=== PATIENT | female | born 2005 | race Two or more races ===

== ENCOUNTER 2024-10-26 14:14 | Emergency (ER) | payer MEDICAID, OTHER ==
[~2024-10-26] VITALS: Ht 160 cm; Wt 62.1 kg
[2024-10-26 15:08] LABS: Urine Budding Yeast OCCASIONAL /hpf (None Seen); Urine Protein, UAD Negative (Negative)
--- NOTE | 2024-10-26 15:11 | ED.PDOC ---
[facility] [employer] HPI Comments A 19 YEAR OLD FEMALE PRESENTS TO THE ED WITH COMPLAINT OF VAGINAL SPOTTING AND PELVIC CRAMPING DURING . PATIENT STATES SHE IS CURRENTLY ABOUT 7 WEEKS AND HAS BEEN EXPERIENCING VAGINAL SPOTTING MILD PELVIC CRAMPING FOR THE PAST 2 DAYS. PATIENT DENIES DYSURIA, HEMATURIA, VAGINAL DISCHARGE, FEVER, CHILLS, SHORTNESS OF BREATH, CHEST PAIN, ABDOMINAL PAIN, NAUSEA, VOMITING, HEADACHE, OR OTHER COMPLAINTS. NO OTHER SYMPTOMS OR MODIFYING FACTORS AT THIS TIME. PATIENT IS ALERT, ORIENTED X 4, AND HAS STEADY GAIT. Chief Complaint: Vaginal Bleed Time Seen by MD: 14:21 Reviewed Notes: Nurses Notes, Medications, Allergies Information Source: Patient Mode of Arrival: Ambulatory Timing: Days Prehospital treatment: None Severity: Moderate Vaginal Discharge: None Vaginal Lesions: None Bleeding Quality: Bright Red Vaginal Mass: None Onset Of Mass/Bleeding: Spontaneous Last Consensual [place]: Unknown Control: None History of: Current Blood Type: Unknown Symptoms of Possible : None Associated Signs and Symptoms: Vaginal Bleeding Past Medical History PAST MEDICAL HISTORY: Denies Surgical History: Denies all surgeries IMMUNOLOGY SPECIALIST History: No Pertinent IMMUNOLOGY SPECIALIST History Family History Family History: Reviewed,noncontributory to illness Social History Smoker: Non-Smoker Alcohol: Denies ETOH Use Drugs: Denies Drug Use Lives In: Home Constitutional: denies: chills, diaphoresis, fatigue, fever, malaise, sweats, weakness, others EENTM: denies: blurred vision, double vision, ear bleeding, ear discharge, ear drainage, ear pain, ear ringing, eye pain, eye redness, hearing loss, mouth pain, mouth swelling, nasal discharge, nose bleeding, nose congestion, nose pain, photophobia, tearing, throat pain, throat swelling, voice changes, others Respiratory: denies: cough, hemoptysis, orthopnea, SOB at rest, shortness of breath, SOB with excertion, stridor, wheezing, others Cardiovascular: denies: chest pain, dizzy spells, diaphoresis, Dyspnea on exertion, edema, irregular heart beat, left arm pain, lightheadedness, palpitations, PND, syncope, others Gastrointestinal: denies: abdomen distended, abdominal pain, blood streaked bowels, constipated, diarrhea, dysphagia, difficulty swallowing, hematemesis, melena, nausea, poor appetite, poor fluid intake, rectal bleeding, rectal pain, vomiting, others Genitourinary: reports: abnormal vagina bleeding, pain (PELVIC CRAMPING); denies: burning, dyspareunia, dysuria, flank pain, frequency, hematuria, incontinence, , vagina discharge, urgency, others Neurological: denies: dizziness, fainting, headache, left sided numbness, left sided weakness, numbness, paresthesia, pre-existing deficit, right sided numbness, right sided weakness, seizure, speech problems, tingling, tremors, weakness, others Musculoskeletal: denies: back pain, gout, joint pain, joint swelling, muscle pain, muscle stiffness, neck pain, others Integumetry: denies: bruises, change in color, change in hair/nails, dryness, laceration, lesions, lumps, rash, wounds, others Allergic/Immunocompromised: denies: Difficulty Healing, Frequent Infections, Hives, Itching, others Hematologic/Lymphatic: denies: anemia, blood clots, easy bleeding, easy bruising, swollen glands, others Endocrine: denies: excessive hunger, excessive sweating, excessive thirst, excessive urination, flushing, intolerance to cold, intolerance to heat, unexplained weight gain, unexplained weight loss, others Psychiatric: denies: anxiety, bipolar disorder, depression, hopeless, panic disorder, schizophrenia, sleepless, suicidal, others All Other Systems: Reviewed and Negative Physical Exam General Appearance: No Apparent Distress, Normal HEENT: Normal ENT Inspection, Pharynx Normal, TMs Normal Neck: Full Range of Motion, Non-Tender, Normal, Normal Inspection Respiratory: Chest Non-Tender, Lungs Clear, No Accessory Muscle Use, No Respiratory Distress, Normal Breath Sounds Cardiovascular: No Edema, No JVD, No Murmur, No Gallop, Normal Peripheral Pulses, Regular Rate/Rhythm Breast Exam: Deferred Gastrointestinal: No Organomegaly, Non Tender, No Pulsatile Mass, Normal Bowel Sounds, Soft Genitalia: Deferred Pelvic: Normal External Exam, Vaginal Bleeding (VAGINAL SPOTTING, NO VAGINAL BLEEDING AND BLOOD CLOTS. ) Rectal: Deferred Extremities: No calf tenderness, Normal capillary refill, Normal inspection, Normal range of motion, Non-tender, No pedal edema Musculoskeletal : Apperance: Normal Neurologic: Alert, manager technical training II-XII nml as Tested, No Motor Deficits, Normal Affect, Normal Mood, No Sensory Deficits Cerebellar Function: Normal Reflexes: Normal Skin: Dry, Normal Color, Warm Peripheral Pulses: 2+ carotid (R), 2+ carotid (L) Lymphatic: No Adenopathy Was a procedure done? Was a procedure done?: No Differential Diagnosis (IMMUNOLOGY SPECIALIST) Vaginal Bleeding: - Incomplete, - Threatened, UTI, Vaginitis Mass / Lesion: N/A Vaginal Discharge: N/A X-Ray, Labs, Meds, VS Vital Signs Date Time Temp Pulse Resp B/P (MAP) Pulse Ox O2 Delivery O2 Flow Rate FiO2 10/26/24 15:26 98.4 69 16 126/82 (97) 98 98.4 10/26/24 15:26 69 16 98 Room Air 10/26/24 14:17 97.6 96 18 116/73 97 97.6 Lab Test 10/26/24 15:00 10/26/24 14:43 Range/Units White Blood Count 9.3 4.4-10.8 10^3/uL Red Blood Count 4.70 4.0-5.20 10^6/uL Hemoglobin 14.8 12.2-16.2 g/dL Hematocrit 42.4 36.0-46.0 % Mean Corpuscular Volume 90.1 80.0-100.0 fL Mean Corpuscular Hemoglobin 31.5 28.0-32.0 pg Mean Corpuscular Hemoglobin Concent 35.0 32.0-36.0 g/dL Red Cell Distribution Width 13.1 11.8-14.3 % Platelet Count 300 140-450 10^3/uL Mean Platelet Volume 8.3 6.9-10.8 fL Neutrophils (%) (Auto) 75.8 37.0-80.0 % Lymphocytes (%) (Auto) 17.0 10.0-50.0 % Monocytes (%) (Auto) 6.3 0.0-12.0 % Eosinophils (%) (Auto) 0.6 0.0-7.0 % Basophils (%) (Auto) 0.3 0.0-2.0 % Neutrophils # (Auto) 7.0 1.6-8.6 10 ^3/uL Lymphocytes # (Auto) 1.6 0.4-5.4 10 ^3/uL Monocytes # (Auto) 0.6 0-1.3 10 ^3/uL Eosinophils # (Auto) 0.1 0-0.8 10 ^3/uL Basophils # (Auto) 0 0-0.2 10 ^3/uL Nucleated Red Blood Cells 0.0 % Beta HCG, Quantitative 64446.8 H 1.5-4.2 mIU/mL Urine Color Colorless Yellow Urine Clarity Clear Clear Urine pH 7.5 5.0-9.0 Urine Specific [place] 1.006 1.001-1.035 Urine Protein Negative Negative Urine Ketones Negative Negative Urine Blood Negative Negative /uL Urine Nitrite Negative Negative Urine Bilirubin Negative Negative Urine Urobilinogen Normal Negative mg/dL Urine Leukocyte Esterase Negative Negative /uL Urine RBC 1 0 - 4 /hpf Urine Microscopic WBC 1 0-5 /HPF Urine Squamous Epithelial Cells Few <5 /hpf Urine Bacteria None seen None Seen /hpf Urine Yeast (Budding) Occasional None Seen /hpf Urine Glucose Normal Normal mg/dL Urine Test Positive Negative INDICATION: VAGINAL SPOTTING, 7 WEEKS TECHNIQUE: Multiple real-time grayscale transabdominal sonographic images along with color and duplex Doppler of the uterus and ovaries were obtained. COMPARISON: None FINDINGS: The uterus measures 7.6 x 6.9 x 4. cm. The endometrial stripe measures gestational sac noted in the endometrial canal cm. The right ovary measures 2.7 x 1.7 x 1.9 cm. Volume of the right ovary is 4.9 cc. A 0.7 x 0.5 x 0.5 cm anechoic structure noted in the right ovary may represent a follicle. The left ovary measures 2.5 x 1.5 x 1.5 cm. Volume of the left ovary is 3.1 cc. Subsequent color and duplex Doppler interrogation of the ovaries demonstrated symmetric vascular flow to both ovaries, though this does not exclude the possibility of torsion due to the dual blood supply. Gestational sac in the endometrial canal measuring 2.79 cm consistent with 7 week 4 days. Yolk sac is visualized. [place]-rump length is 0.96 cm consistent with 7 weeks 0 days. Adjacent to the gestational sac is a hypoechoic avascular structure measuring 0.9 x 0.4 x 1.9 cm. Average gestational age is 7 weeks 2 days ; [place] 06/12/2027. FHR: 157 bpm IMPRESSION: 1. Single intrauterine with average gestational age of 7 weeks 2 days ; [facility] 2. FHR: 157 bpm. 3. Subchorionic hemorrhage measuring 0.9 x 0.4 x 1.9 cm. 4. Corpus luteal cyst right ovary 0.7 x 0.5 x 0.5 cm. ATED BY: LEXIE KRUEGER Jr., DO DICTATED DATE/TIME: 10/26/241546 SIGNED BY: LEXIE KRUEGER Jr., SIGNED DATE/TIME: 10/26/241546 CC: X-Ray, Labs, Meds, VS Comment EXTERNAL MEDICAL RECORDS REVIEWED: [NONE] INDEPENDENT HISTORIANS: [NONE] SOCIAL DETERMINANTS OF HEALTH: [NONE] LABS ORDERED: CBC, BETA HCG QUANT, UA, URINE REVIEWED AND INTERPRETED RESULTS: BHCG QUANT 93,380.8 IMAGING ORDERED: US OB < 14 WKS TREATMENTS ORDERED: NONE PROCEDURES PERFORMED: NONE CRITICAL CARE TIME: NONE I HAVE DISCUSSED THE PATIENT WITH THE ATTENDING PHYSICIAN DR. DIMAS AND HE AGREES WITH THE PATIENT'S PLAN OF CARE AND DISPOSITION. BASED ON HISTORY OF PRESENT ILLNESS, AND PHYSICAL EXAM, PATIENT WILL BE DISCHARGED HOME. SHARED DECISION MAKING: DISCUSSED WITH PATIENT THAT THEIR WORKUP WAS NORMAL. PATIENT INSTRUCTED TO FOLLOW UP WITH PRIMARY CARE PROVIDER IN 1-2 DAYS FOR RE- EVALUATION OF SYMPTOMS. PATIENT VERBALIZES UNDERSTANDING TO RETURN TO ED FOR NEW OR WORSENING SYMPTOMS OR IF FOLLOW UP WITH PCP CANNOT BE OBTAINED. PATIENT FEELS COMFORTABLE GOING HOME AT THIS TIME. ALL QUESTIONS ADDRESSED AT TIME OF DISCHARGE. Images Reviewed?: Images reviewed and evaluated by me Time of 1ST Reevaluation: 16:00 Reevaluation 1ST: Improved Patient Education/Counseling: Diagnosis, Treatment, Need For Follow Up Family Education/Counseling: Diagnosis, Treatment, Need For Follow Up Medical Screening: No EMC Exist At This Time Departure 1 Departure Time of Disposition: 16:10 Impression: Primary Impression: Vaginal spotting Additional Impression: Threatened in first trimester Disposition: 01 HOME / SELF CARE / HOMELESS Condition: Stable Additional Instructions: FOLLOW-UP WITH [facility] [employer] IN 1 TO 2 DAYS. RETURN TO ED FOR ANY NEW OR WORSENING SYMPTOMS. Discharged With: Self, Relative Critical Care Note Critical Care Time?: No Stability Stability form required: No I personally scribed for JESSICA GARIBAY ([email or web address]) on 10/26/24 at 15:11. Electronically submitted by Jean-Pierre Ramos ([email or web address]). I personally scribed for JESSICA GARIBAY ([email or web address]) on 10/26/24 at 16:00. Electronically submitted by Jean-Pierre Ramos ([email or web address]). I personally scribed for JESSICA GARIBAY ([email or web address]) on 10/26/24 at 16:05. Electronically submitted by Jean-Pierre Ramos ([email or web address]). JESSICA GARIBAY Oct 26, 2024 15:11
[2024-10-26 15:25] LABS: Hematocrit 42.4 % (36.0-46.0); Hemoglobin 14.8 g/dL (12.2-16.2); Mean Corpuscular Hemoglobin 31.5 pg (28.0-32.0); Mean Corpuscular Volume 90.1 fL (80.0-100.0); Nucleated Red Blood Cells % 0.0 %
[2024-10-26 15:26] VITALS: BP 126/82; PULSE 69; RESP 16; TEMP 98.4; O2SAT 98
--- NOTE | 2024-10-26 15:49 | DVH ---
INDICATION: VAGINAL SPOTTING, 7 WEEKS TECHNIQUE: Multiple real-time grayscale transabdominal sonographic images along with color and duplex Doppler of the uterus and ovaries were obtained. COMPARISON: None FINDINGS: The uterus measures 7.6 x 6.9 x 4. cm. The endometrial stripe measures gestational sac note d in the endometrial canal cm. The right ovary measures 2.7 x 1.7 x 1.9 cm. Volume of the right ovary is 4.9 cc. A 0.7 x 0.5 x 0.5 c m anechoic structure noted in the right ovary may represent a follicle. The left ovary measures 2.5 x 1.5 x 1.5 cm. Volume of the left ovary is 3.1 cc. Subsequent color and duplex Doppler interrogation of the ovaries demonstrated symmetric vascular flow to both ovaries, though this does not exclude the possibility of torsion due to the dual blood suppl y. Gestational sac in the endometrial canal measuring 2.79 cm consistent with 7 week 4 days. Yolk sac is visualized. [place]-rump length is 0.96 cm consistent with 7 weeks 0 days. Adjacent to the gestational sac is a hyp oechoic avascular structure measuring 0.9 x 0.4 x 1.9 cm. Average gestational age is 7 weeks 2 days ; [facility] 06[birth year]2025. FHR: 157 bpm IMPRESSION: 1. Single intrauterine with average gestational age of 7 weeks 2 days ; [place] 2. FHR: 157 bpm. 3. Subchorionic hemorrhage measuring 0.9 x 0.4 x 1.9 cm. 4. Corpus luteal cyst right ovary 0.7 x 0.5 x 0.5 cm.
== END 2024-10-26 16:07 | disposition home or self-care (01) ==
LOC: ER 14:19
DX: O20.0 Threatened abortion (principal); O26.859 Spotting complicating pregnancy, unspecified trimester; Z3A.01 Less than 8 weeks gestation of pregnancy
CPT/HCPCS: 36415; 76801; 81001; 81025; 84702; 85025